=== PATIENT | female | born 1995 | race Caucasian/White ===

== ENCOUNTER 2017-07-14 15:47 | Emergency (ER) | payer BC ==
[~2017-07-14] VITALS: Ht 165.1 cm; Wt 60.7 kg
[~2017-07-14 15:47] MED LIST: BCPILLS PO; DEXT30TA7 PO; MISCCAP80 PO; PHEN-582 PO
[2017-07-14 15:57] VITALS: TEMP 36.9; Ht 165.1 cm; Wt 60.7 kg
[2017-07-14] MEDS ORDERED: MULT-506 PO (16:26)
[2017-07-14] MEDS ORDERED: VNTHFA/IN INH (16:27)
[2017-07-14] MEDS ORDERED: OPTIRAY 320 IV PRN (16:45)
[2017-07-14 16:48] LABS: BASO % 0.3 %; BASO ABS # 0.03 K/uL (0-0.2); COMPLETE YES; EOS % 1.1 %; HEMATOCRIT 36.9 % (37-47); IG% 0.2 %; LYMPH % 25.8 %; LYMPH ABS # 2.39 K/uL (1.2-3.4); MEAN CELL VOLUME 92.9 fL (80-100); MEAN CORPUSCULAR HEMOGLOBIN 31.5 pg (25-34); MEAN CORPUSCULAR HGB CONC 33.9 g/dl (32-36); MEAN PLATELET VOLUME 10.2 fL (7.4-10.4); MONO % 4.2 %; NEUT % 68.4 %; PLATELET COUNT 261 K/uL (130-400); RED BLOOD COUNT 3.97 M/uL (4.2-5.4); WHITE BLOOD COUNT 9.28 K/uL (4.8-10.8)
[2017-07-14 17:00] VITALS: O2SAT 98
[2017-07-14 17:04] LABS: URINE APPEARANCE CLEAR (CLEAR); URINE BILIRUBIN NEG (NEG); URINE COLOR YELLOW; URINE NITRITE NEG (NEG); URINE SPECIFIC GRAVITY 1.012 (1.000-1.030); UROBILINOGEN NEG (NEG); ZZUR CULT IF INDIC CLEAN CATCH NO
[2017-07-14 17:05] LABS: MANUAL MICROSCOPIC REQUIRED? NO; REVIEW REQ? NO
[2017-07-14 17:08] LABS: BUN/CREATININE RATIO 9.6 (10-20); CREATININE 0.92 mg/dl (0.60-1.20); POTASSIUM 3.2 mmol/L (3.5-5.1)
[2017-07-14 17:10] LABS: ALB/GLOB RATIO 1.3 (0.9-2)
--- NOTE | 2017-07-14 17:51 | DIAGNOSTIC IMAGING REPORT ---
CT ANGIOGRAPHY HEAD COMBO CT DOSE: 662.37 mGy.cm CLINICAL HISTORY: Severe headache and syncope. TECHNIQUE: Unenhanced images were obtained the brain. CT angiography was then performed during intravenous administration of 97 cc of Optiray 320. MIP imaging was performed. A dose lowering technique was utilized adhering to the principles of ALARA. COMPARISON STUDY: None. FINDINGS: On the noncontrast study, no intra or extra-axial mass lesions are visualized. There is no CT evidence of acute cortical infarction. There is no midline shift. There is no acute hemorrhage. There is no hydrocephalus. On the postcontrast images, there are no pathologically enhancing lesions. There are no major intracranial branch occlusions. There are no lesion suspicious for aneurysm. There are no findings to indicate dural venous sinus thrombosis. IMPRESSION: Normal study Electronically signed by: Ruben Bernal M.D. 07/14/2017 5:49 PM Dictated Date/Time: 07/14/2017 5:45 PM
--- NOTE | 2017-07-14 18:28 | EMERGENCY ROOM VISIT NOTE ---
History First contact with patient: 16:02 Chief Complaint: HEAD PAIN Stated Complaint: PASSED OUT FRI,HIT HEAD History of Present Illness The patient is a 21 year old female who presents to the Emergency Room via private vehicle with complaints of "passed out Friday, hit head". The patient states that this past Friday she was on a [employer], traveling from [place] to [place], following a concert. She states that while holding onto the pole in the subway while standing, she felt nauseous, and then as if she was experiencing anxiety attack. She states noise then he came off, and she heard a high-pitched noise. She then notes she woke up on the floor. Bystanders noted that she was little groggy afterwards, but there was no convulsion. She has never passed out before. She states that she was unconscious for about 30 seconds. Since then she has felt tired, and feels like she is breathing slightly slower. She denies any chest pain or shortness of breath. She does have an associated headache of which has been persistent. She has also been having ongoing migraines over the past few months, but has been unable to see a neurologist. She denies chance of . Review of Systems A complete 10-point Review of Systems was discussed with the patient, with pertinent positives and negatives listed in the History of Present Illness. All remaining Review of Systems questions can be considered negative unless otherwise specified. Past Medical/Surgical History Medical Problems: (1) Strep sore throat Family History Patient reports no known family medical history. Social History Smoking Status: Former Smoker Marital Status: single Occupation Status: student Current/Historical Medications Scheduled Control Pills ( Control Pills), 1 TAB PO DAILY Multivitamin (Multivitamin), 1 TAB PO DAILY Scheduled PRN Albuterol Hfa (Ventolin Hfa), 2 PUFFS INH Q6H PRN for SOB/Wheezing Physical Exam Vital Signs Date Time Temp Pulse Resp B/P (MAP) Pulse Ox O2 Delivery O2 Flow Rate FiO2 07/14/17 18:43 63 16 117/69 99 07/14/17 17:00 98 Room Air 07/14/17 17:00 65 18 122/73 99 Room Air 07/14/17 15:57 36.9 76 20 132/84 99 Room Air Physical Exam VITAL SIGNS - Vital signs and nursing notes were reviewed. Stable. GENERAL -21-year-old female appearing her stated age who is in no acute distress. Communicates well with provider and answers questions appropriately. SKIN - Without rashes. No petechial rashes. HEAD - NC/AT. No shafer signs or raccoons eyes. EYES - PERRL with EOMI bilaterally. Sclera anicteric. No hyphema. EARS - No deformities of external structures noted on gross examination bilaterally. No pain elicited with palpation of the tragus bilaterally. External auditory canals without discharge or otorrhea. Tympanic membranes pearly chávez without retraction or bulging. No fluid or purulent material visualized behind the TM. Handle of malleus, umbo, cone of light, pars tensa/ flaccid all easily visualized. No hemotympanum. NOSE - Midline and without cyanosis. No epistaxis or purulent drainage noted. Septum midline without deviation or septal hematoma noted. MOUTH/OROPHARYNX - Without perioral cyanosis. Buccal mucosa pink and moist and without leukoplakia. Tongue midline with equal elevation of palate bilaterally. No tonsillar hypertrophy, erythema, or exudates noted. Fair dentition noted. NECK - Neck with FROM. Supple to palpation. No C-spine tenderness. LUNGS - Chest wall symmetric without accessory muscle use, intercostals retractions, or central cyanosis. Normal vesicular breath sounds CTA B/L. No wheezes, rales, or rhonchi appreciated. CARDIAC - RRR with S1/S2. No murmur, rubs, or gallops appreciated. EXTREMITIES - No clubbing or peripheral cyanosis. No pretibial edema present. + 5/5 strength noted in UE/LE bilaterally. NEUROLOGIC - Cranial nerves II through XII grossly intact. Sensory intact to light touch throughout. Patellar reflexes +2/4. PSYCH - A&Ox3 and cooperates fully with examiner. Pt is very pleasant and interacts well with examiner. Medical Decision & Procedures ER Provider Diagnostic Interpretation: CT ANGIOGRAPHY HEAD COMBO CT DOSE: 662.37 mGy.cm CLINICAL HISTORY: Severe headache and syncope. TECHNIQUE: Unenhanced images were obtained the brain. CT angiography was then performed during intravenous administration of 97 cc of Optiray 320. MIP imaging was performed. A dose lowering technique was utilized adhering to the principles of ALARA. COMPARISON STUDY: None. FINDINGS: On the noncontrast study, no intra or extra-axial mass lesions are visualized. There is no CT evidence of acute cortical infarction. There is no midline shift. There is no acute hemorrhage. There is no hydrocephalus. On the postcontrast images, there are no pathologically enhancing lesions. There are no major intracranial branch occlusions. There are no lesion suspicious for aneurysm. There are no findings to indicate dural venous sinus thrombosis. IMPRESSION: Normal study Electronically signed by: Ruben Bernal M.D. 07/14/2017 5:49 PM Dictated Date/Time: 07/14/2017 5:45 PM Laboratory Results 07/14/17 16:35 Red Blood Count 3.97, Mean Corpuscular Volume 92.9, Mean Corpuscular Hemoglobin 31.5, Mean Corpuscular Hemoglobin Concent 33.9, Mean Platelet Volume 10.2, Neutrophils (%) (Auto) 68.4, Lymphocytes (%) (Auto) 25.8, Monocytes (%) (Auto) 4.2, Eosinophils (%) (Auto) 1.1, Basophils (%) (Auto) 0.3, Neutrophils # (Auto) 6.35, Lymphocytes # (Auto) 2.39, Monocytes # (Auto) 0.39, Eosinophils # (Auto) 0.10, Basophils # (Auto) 0.03 07/14/17 16:35 Test 07/14/17 16:35 07/14/17 16:50 White Blood Count 9.28 K/uL (4.8-10.8) Red Blood Count 3.97 M/uL (4.2-5.4) Hemoglobin 12.5 g/dL (12.0-16.0) Hematocrit 36.9 % (37-47) Mean Corpuscular Volume 92.9 fL (80-100) Mean Corpuscular Hemoglobin 31.5 pg (25-34) Mean Corpuscular Hemoglobin Concent 33.9 g/dl (32-36) Platelet Count 261 K/uL (130-400) Mean Platelet Volume 10.2 fL (7.4-10.4) Neutrophils (%) (Auto) 68.4 % Lymphocytes (%) (Auto) 25.8 % Monocytes (%) (Auto) 4.2 % Eosinophils (%) (Auto) 1.1 % Basophils (%) (Auto) 0.3 % Neutrophils # (Auto) 6.35 K/uL (1.4-6.5) Lymphocytes # (Auto) 2.39 K/uL (1.2-3.4) Monocytes # (Auto) 0.39 K/uL (0.11-0.59) Eosinophils # (Auto) 0.10 K/uL (0-0.5) Basophils # (Auto) 0.03 K/uL (0-0.2) RDW Standard Deviation 45.7 fL (36.4-46.3) RDW Coefficient of Variation 13.2 % (11.5-14.5) Immature Granulocyte % (Auto) 0.2 % Immature Granulocyte # (Auto) 0.02 K/uL (0.00-0.02) Anion Gap 8.0 mmol/L (3-11) Est Creatinine Clear Calc Drug Dose 88.5 ml/min Estimated GFR () 104.6 Estimated GFR (Non- 90.3 BUN/Creatinine Ratio 9.6 (10-20) Calcium Level 9.0 mg/dl (8.5-10.1) Total Bilirubin 0.3 mg/dl (0.2-1) Aspartate Amino Transf (AST/SGOT) 13 U/L (15-37) Alanine Aminotransferase (ALT/SGPT) 23 U/L (12-78) Alkaline Phosphatase 48 U/L (45-117) Total Protein 7.6 gm/dl (6.4-8.2) Albumin 4.2 gm/dl (3.4-5.0) Globulin 3.4 gm/dl (2.5-4.0) Albumin/Globulin Ratio 1.3 (0.9-2) Urine Color YELLOW Urine Appearance CLEAR (CLEAR) Urine pH 6.0 (4.5-7.5) Urine Specific [place] 1.012 (1.000-1.030) Urine Protein NEG (NEG) Urine Glucose (UA) NEG (NEG) Urine Ketones NEG (NEG) Urine Occult Blood NEG (NEG) Urine Nitrite NEG (NEG) Urine Bilirubin NEG (NEG) Urine Urobilinogen NEG (NEG) Urine Leukocyte Esterase NEG (NEG) Urine Test NEG (NEG) Medical Decision Patient was seen and evaluated as above. She presents to us today with headache , history of severe migraines, as well as syncopal event 30 seconds, and persistent headache. She is well on exam. Vital signs are stable. Bedside EKG reveals sinus bradycardia, rate of 57 bpm. No ectopy or ischemic change. CBC reveals no leukocytosis. Slight anemia noted. Metabolic workup reveals potassium low at 3.2, she is to eat foods high in potassium and follow-up with her family doctor for recheck. No evidence of kidney or liver failure. Urine is negative. Urine brings test is negative. CT scan of the head was obtained with contrast of the arteries to ensure that there is no vascular abnormality leading to her severe headaches and syncopal event. This was negative. I do believe she is likely experiencing a concussion, and she was likely express a vasovagal episode with what may been a panic attack on Friday and the case was discussed with the attending physician. I also spoke with the patient's mother regarding the patient's stay here 2. They seemed happy with plan of care, the patient appears stable for outpatient management. She is to follow-up with [facility] services, as well as her family doctor back home. She was educated upon management, educated upon worrisome symptoms in which to return, had questions prior to discharge, and was discharged home in good condition. In the evaluation and treatment of this patient, the following differential diagnoses were considered: Concussion, Contrecoup Injury, Brain Tumor, Depression, Encephalitis, Hypothyroidism, Meningitis, CVA, TIA, Migraine, Cluster Headache, Intracranial Abnormality, Intracranial Hemorrhage, Subdural Hematoma, Subarachnoid Hemorrhage, Hydrocephalus. Impression Primary Impression: Closed head injury Additional Impressions: Hypokalemia Syncope Concussion Departure Information Dispostion Home / Self-Care Condition GOOD Referrals [facility] (PCP) Patient Instructions Hypokalemia [facility] Additional Instructions You have been treated in the Emergency Department for a Closed Head Injury, syncope and concussion. CT Scan of your head/brain demonstrated no acute bleeding or other abnormalities. This does not completely rule out the risk for future damage to the brain. For pain control, you can use the following [id number] medicines: - Regular strength (325mg/tab) Tylenol (acetaminophen) 2 tabs every 4-6 hours as needed. Do not exceed 12 tablets in a 24 hour period. Avoid taking more than 3 grams (3000 mg) of Tylenol per day. This includes any other sources of acetaminophen you may take on a regular basis. - Regular strength (200 mg/tab) Advil (ibuprofen) 1-2 tabs every 4-6 hours as needed. Do not exceed a dose of 3200 mg per day. You should relax in a quiet, dark place for the rest of the day. Avoid any possible triggers including: cigarette smoke, caffeine, nicotine, chocolate, wine, beer, loud noises or music, or bright lights. You should schedule a follow-up appointment in 2-3 days with your Primary Care Provider or established Neurologist for further evaluation and treatment of your Headache. ([facility]) Please limit reading, cell phone use, and television watching other than what is required. Return to the Emergency Department if your current symptoms worsen despite treatment course outlined above, or if you develop any of the following symptoms : intractable pain despite aforementioned treatment course, visual disturbances , loss of vision, unilateral weakness or facial drooping, slurring of speech, loss of coordination, or loss of consciousness. Problem Qualifiers
[2017-07-14 18:43] VITALS: BP 117/69; PULSE 63; O2SAT 99
== END 2017-07-14 18:45 | disposition home or self-care (01) ==
LOC: C.EDB 15:49 → C.EDD 18:45
DX: S06.0X1A Concussion with loss of consciousness of 30 minutes or less, initial encounter (principal); X58.XXXA Exposure to other specified factors, initial encounter; E87.6 Hypokalemia; R55 Syncope and collapse; Z87.891 Personal history of nicotine dependence